=== PATIENT | female | born 1990 | race Caucasian/White ===

== ENCOUNTER 2020-11-11 07:27 | Outpatient (CLI) | payer OTHER, MEDICAID, SELFPAY ==
--- NOTE | ~2020-11-11 | US_ITS ---
EXAMINATION: US abdomen limited DATE: 11/11/2020 08:02 INDICATION: Right upper quadrant abdominal pain. Proteinuria affecting in second trimester. TECHNIQUE: Multiple grayscale and Doppler ultrasound images of the abdomen were obtained. COMPARISON: None FINDINGS: The visualized portions of the head, body, and tail of the pancreas are normal. The liver i s normal without focal lesion. There is normal flow in main portal vein. The gallbladder is absent. T he common duct is normal and measures 2 mm. IMPRESSION: 1. Normal right upper quadrant ultrasound status post cholecystectomy. Reviewed, dictated and finalized at location A.
== END 2020-11-11 07:28 | disposition home or self-care (01) ==
LOC: ANHIMG 07:32
PROVIDERS: Visit Provider Obstetrics & Gynecology Obstetrics
DX: K83.1 Obstruction of bile duct (principal); R80.9 Proteinuria, unspecified; Z90.49 Acquired absence of other specified parts of digestive tract
CPT/HCPCS: 76705

== ENCOUNTER 2022-03-24 19:17 | Emergency (ER) | payer MEDICAID, SELFPAY ==
--- NOTE | ~2022-03-24 | XR_ITS ---
EXAM: XR finger 1st LT min 2V DATE: 03/24/2022 19:38 HISTORY: smashed lt thumb in cart.pain mid to distal lt 1st . COMPARISON: None available. FINDINGS: Normal mineralization. No fracture or dislocation. No lytic or blastic lesion. Joint space s are maintained. No erosion or periosteal change. Soft tissues within normal limits. IMPRESSION: No acute osseous finding in the left thumb. Reviewed, dictated and finalized at location K.
[2022-03-24 19:27] VITALS: BP 127/80; PULSE 71; RESP 16; TEMP 36.3; O2SAT 100
--- NOTE | 2022-03-24 19:33 | ED.UPPEXIN ---
HPI - Extremity Injury (Upper) General Chief Complaint: Extremity Injury, Upper Stated Complaint: Thumb Injury Time Seen by Provider: 03/24/22 19:35 Source: patient and RN notes reviewed Mode of arrival: ambulatory Limitations: no limitations History of Present Illness HPI narrative: 31-year-old female presents concern for injury to the first digit of left hand. Reports earlier this morning she smashed the finger in a cart. She reports pain, swelling, discoloration under her fingernail. Reports she has been alternating Tylenol and ibuprofen. MD complaint: injury to: left and finger Related Data Home Medications Medication Instructions Recorded Confirmed alprazolam 0.5 mg tablet 0.5 mg PO DAILY 03/24/22 03/24/22 bupropion HCl 150 mg 24 hr tablet, 150 mg PO DAILY 03/24/22 03/24/22 extended release buspirone 7.5 mg tablet 7.5 mg PO DAILY 03/24/22 03/24/22 dextroamphetamine-amphetamine ER 20 mg PO DAILY 03/24/22 03/24/22 20 mg 24hr capsule,extend release Allergies Allergy/AdvReac Type Severity Reaction Status Date / Time fluoxetine [From Prozac] AdvReac Other Verified 03/24/22 19:37 Review of Systems Review of Systems: CONSTITUTIONAL: Denies malaise, chills, sweats, or fever. SKIN: Denies rash or itching, open skin, laceration, abrasion, redness, warmth MUSCULOSKELETAL: Reports pain, swelling, discoloration in the nailbed of the first digit of the left hand NEUROLOGIC: Denies numbness, weakness All systems reviewed & are unremarkable except as noted in HPI and below PMFSH Comments At time of signature, agree with nursing past medical, surgical, social and family history. There is no relevant family history pertinent to the presenting complaint Exam Narrative: GENERAL: Well-appearing, well-nourished, and in no acute distress. HEAD: Normocephalic EYES: PERRLA, conjunctivae clear NECK: Supple. CHEST: Speaks in full sentences. No respiratory distress. HEART: Regular rate and rhythm. Normal and equal peripheral pulses. EXTREMITIES: First digit of left hand has normal strength and sensation. 5/5 strength with digit flexion, extension. Range of motion normal. No clubbing, cyanosis. Mild distal digit edema noted. Tenderness palpation. Skin intact. Normal digital cascade with flexion of fingers, median, ulnar and radial nerve intact. Normal sensation of each side of finger. Can perform 'okay' sign, 'cross over finger test of index and middle fingers' and 'thumbs up' sign. No scissoring. Normal thumb opposition. Good capillary refill and radial pulse. Distal capillary refill less than 3 seconds. Patient is right/left hand dominant SKIN: Warn, dry, intact, pink. No rash. Subungual hematoma noted the first digit of left hand NEURO: Alert and oriented x3. PSYCH: Normal mood and affect Course Course Emergency Course: Patient is aware of diagnosis, understands and agrees to treatment plan. Anticipatory guidance given. Patient agrees to follow-up as directed and is aware of reasons to seek care at the emergency department. Portions of this record may have been created with voice recognition software Level of Care: Express Care Visit Vital Signs Vital signs: Vital Signs Temperature 97.3 F L 03/24/22 19:27 Pulse Rate 71 03/24/22 19:27 Respiratory Rate 16 03/24/22 19:27 Blood Pressure 127/80 03/24/22 19:27 Pulse Oximetry 100 03/24/22 19:27 Oxygen Delivery Room Air 03/24/22 19:27 Temperature 97.3 F L 03/24/22 19:27 Pulse Rate 71 03/24/22 19:27 Respiratory Rate 16 03/24/22 19:27 Blood Pressure 127/80 03/24/22 19:27 Pulse Oximetry 100 03/24/22 19:27 Oxygen Delivery Room Air 03/24/22 19:27 Reviewed. Procedures Nail Trephination Nail Trephination #1: Nail Trephination Date: 03/24/22 Nail Trephination Time: 19:40 Time out: Yes Location (finger): left and thumb Sterile prep: betadine Method of drainage: nail cautery Procedure succ
== END 2022-03-24 19:55 | disposition home or self-care (01) ==
PROVIDERS: Emergency Provider Nurse Practitioner; PCP Family Medicine
DX: S60.112A Contusion of left thumb with damage to nail, initial encounter (principal); X58.XXXA Exposure to other specified factors, initial encounter; F41.9 Anxiety disorder, unspecified; F32.A Depression, unspecified
CPT/HCPCS: 11740; 73140; 99213; G0463

== ENCOUNTER 2022-04-11 10:48 | Emergency (ER) | payer OTHER, SELFPAY ==
--- NOTE | ~2022-04-11 | XR_ITS ---
EXAMINATION: XR chest 2V DATE: 04/11/2022 11:27 INDICATION: Cough TECHNIQUE: PA and lateral views of the chest are obtained. COMPARISON: None available FINDINGS: The lungs are free of acute opacities. No pleural effusion or pneumothorax. The cardiomedia stinal silhouette is normal. Surgical clips in the right upper quadrant are likely from prior cholecy stectomy. IMPRESSION: 1. No acute cardiopulmonary abnormality. Reviewed, dictated and finalized at location A.
[2022-04-11 10:54] VITALS: BP 125/61; PULSE 92; RESP 14; TEMP 36.9; O2SAT 99
[2022-04-11 11:10] VITALS: BP 125/61; PULSE 92; RESP 14; TEMP 36.9; O2SAT 99
--- NOTE | 2022-04-11 11:22 | ED.GENADULT ---
HPI - General Adult General Chief complaint: Upper Respiratory Infection Stated complaint: Chest Congestion/Cough Source: patient Mode of arrival: ambulatory Limitations: no limitations History of Present Illness HPI narrative: Patient presents for evaluation of cough for the last 3 days. She states the cough is productive of green/yellow/clear mucus. She has associated shortness of breath and chest heaviness. She states she was seen at an urgent care with [facility] about nine days ago for sore throat. Rapid strep negative at that time, as were her COVID and flu tests. She states she was contacted 7 days ago after the throat culture was positive for strep. She states she was prescribed an unknown antibiotic and took it for several days. She felt like it was not helping her so she stopped taking it a few days ago. Her sore throat persisted. She contacted the urgent care she was initially seen at. She states that they called her in an antibiotic but she has not picked it up yet. She reports hot flashes and chills. No recent sick contacts to her knowledge. She had COVID back in July 2021. She has received COVID vaccination. She has tried TheraFlu and Mucinex without improvement in her symptoms thereafter. No additional complaints or concerns Related Data Home Medications Medication Instructions Recorded Confirmed alprazolam 0.5 mg tablet 0.5 mg PO DAILY 03/24/22 04/11/22 bupropion HCl 150 mg 24 hr tablet, 150 mg PO DAILY 03/24/22 04/11/22 extended release buspirone 7.5 mg tablet 7.5 mg PO DAILY 03/24/22 04/11/22 dextroamphetamine-amphetamine ER 20 mg PO DAILY 03/24/22 04/11/22 20 mg 24hr capsule,extend release Allergies Allergy/AdvReac Type Severity Reaction Status Date / Time fluoxetine [From Prozac] AdvReac Other Verified 04/11/22 10:56 Review of Systems Review of Systems: CONSTITUTIONAL: Reports hot flashes and chills. EYES: Denies visual changes, redness, or discharge. ENT: Reports sore throat. Denies rhinorrhea, congestion, or otalgia. CARDIOVASCULAR: Denies chest pain, palpitations, or edema. RESPIRATORY: Reports productive cough of clear/yellow/green mucus and shortness of breath. GASTROINTESTINAL: Denies abdominal pain, nausea, vomiting, or diarrhea. GENITOURINARY: Denies dysuria or hematuria. SKIN: Denies rash or itching. MUSCULOSKELETAL: Denies back pain, joint pain, or myalgia. NEUROLOGIC: Denies headache, numbness, dizziness, or weakness. PSYCHIATRIC: Denies anxiety or depression. [facility] Past Medical History Medical History (Updated 04/11/22 @ 12:18 by TIFFANIE Chen, ) ADD (attention deficit disorder) Anxiety Depression Surgical History Surgical History History of cholecystectomy Family History Family History Mother Family history non-contributory Social History Social History Living arrangements: with family Gender identity (if verbalized by the patient): Female Sexual Orientation (if Verbalized by the Patient): Straight or Heterosexual Spiritual care concerns: No Exam Narrative: GENERAL: Well-appearing, well-nourished, and in no acute distress. HEAD: Normocephalic, atraumatic. EYES: PERRLA and EOMI. ENT: Nares clear, no rhinorrhea or epistaxis. Mucous membranes moist. Oropharynx without tonsillar hypertrophy exudate or other lesions. Bilateral TMs pearly hatfield nonbulging NECK: Supple. No adenopathy or masses. No carotid bruits or JVD CHEST: Clear to auscultation. No respiratory distress. No wheezes rales or rhonchi HEART: Regular rate and rhythm. No murmur heard. Normal peripheral pulses. ABDOMEN: Soft, nontender, nondistended, normal active bowel sounds. EXTREMITIES: Normal range of motion. No edema. SKIN: Warm, dry, no rash. NEURO: No focal deficits. Alert and oriented x3. PS
== END 2022-04-11 12:21 | disposition home or self-care (01) ==
PROVIDERS: Emergency Provider Nurse Practitioner; PCP Family Medicine
DX: R05.9 Cough, unspecified (principal); Z86.19 Personal history of other infectious and parasitic diseases; Z20.822 Contact with and (suspected) exposure to COVID-19; F98.8 Other specified behavioral and emotional disorders with onset usually occurring in childhood and adolescence; F41.9 Anxiety disorder, unspecified; F32.A Depression, unspecified
CPT/HCPCS: 71046; 87426; 87804; 99213; C9803; G0463

== ENCOUNTER 2022-07-30 16:19 | Emergency (ER) | payer OTHER, SELFPAY ==
--- NOTE | 2022-07-30 16:22 | ED.DIZZY ---
HPI - Dizziness General Chief Complaint: Dizziness Stated Complaint: Dizziness Time Seen by Provider: 07/30/22 16:22 Source: patient and RN notes reviewed History of Present Illness HPI Narrative: patient is a 31-year-old female who presents to urgent care with complaints of dizziness, fever, head congestion for the last 2 days. Patient is also had a lot of fatigue. Patient tested herself at home and it was negative for COVID. Patient has been taking Tylenol for her fevers. No other acute complaints. No acute distress noted. Patient aware of plan of care. Some parts of this dictation were generated by voice recognition software and may contain typographical and/or grammatical inaccuracies. Related Data Home Medications Medication Instructions Recorded Confirmed alprazolam 0.5 mg tablet 0.5 mg PO DAILY 03/24/22 07/30/22 bupropion HCl 150 mg 24 hr tablet, 150 mg PO DAILY 03/24/22 07/30/22 extended release buspirone 7.5 mg tablet 7.5 mg PO DAILY 03/24/22 07/30/22 dextroamphetamine-amphetamine ER 20 mg PO DAILY 03/24/22 07/30/22 20 mg 24hr capsule,extend release Allergies Allergy/AdvReac Type Severity Reaction Status Date / Time fluoxetine [From Prozac] AdvReac Other Verified 07/30/22 16:41 Review of Systems Review of Systems: CONSTITUTIONAL: reports of fever, chills fatigue EYES: Denies visual changes, redness, or discharge. ENT: reports of congestion CARDIOVASCULAR: Denies chest pain, palpitations, or edema. RESPIRATORY: Denies cough or dyspnea. GASTROINTESTINAL: Denies abdominal pain, nausea, vomiting, or diarrhea. GENITOURINARY: Denies dysuria or hematuria. SKIN: Denies rash or itching. MUSCULOSKELETAL: Denies back pain, joint pain. Reports body aches NEUROLOGIC: Denies headache, numbness, or weakness. All other systems reviewed are negative, except as documented in HPI. [facility] Past Medical History Medical History (Updated 07/30/22 @ 16:53 by TIFFANIE Bautista) ADD (attention deficit disorder) Anxiety Depression Surgical History Surgical History History of cholecystectomy Family History Family History Mother Family history non-contributory Social History Social History Gender identity (if verbalized by the patient): Female Sexual Orientation (if Verbalized by the Patient): Straight or Heterosexual Spiritual care concerns: No Comments At the time of my signature, I reviewed and agree with the nursing past medical, surgical, social, and family history. There is no relevant family history pertinent to the patient complaint. Exam Narrative: GENERAL: This is a well-nourished, well-developed patient, in no apparent distress. HEAD: normocephalic, atraumatic. EYES: PERRL. Sclera clear/white. Vision is grossly intact. EARS: External ears normal, auditory canals clear and without drainage, TMs normal without perforation. Hearing grossly intact. NOSE: External nose normal with no obvious nasal discharge, nares without redness, clear rhinorrhea. THROAT: Mucous membranes moist, posterior pharynx clear. moderate postnasal drainage NECK: Neck supple, non-tender without lymphadenopathy CARDIOVASCULAR: Regular rate and rhythm without murmurs, gallops, or rubs. RESPIRATORY: Clear to auscultation. Breath sounds equal bilaterally. No wheezes, rales, or rhonchi. SKIN: warm, intact with no suspicious lesions or rash, good texture and turgor. NEURO: awake, alert, and oriented to person, place and time. There were no obvious focal neurologic abnormalities. EXTREMITIES: No clubbing, cyanosis, or edema. Course Course Level of Care: Express Care Visit Vital Signs Vital signs: Vital Signs Temperature 97.6 F 07/30/22 16:32 Pulse Rate 92 07/30/22 16:32 Respiratory Rate 12 07/30/22 16:32 Blood Pressure
[2022-07-30 16:32] VITALS: BP 99/62; PULSE 92; RESP 12; TEMP 36.4; O2SAT 100
== END 2022-07-30 16:55 | disposition home or self-care (01) ==
PROVIDERS: Emergency Provider Nurse Practitioner Family; PCP Family Medicine
DX: B34.9 Viral infection, unspecified (principal); F41.8 Other specified anxiety disorders
CPT/HCPCS: 87804; 99213; G0463

== ENCOUNTER 2022-09-08 13:28 | Emergency (ER) | payer OTHER, SELFPAY ==
--- NOTE | 2022-09-08 13:32 | ED.URI ---
HPI - URI/Sore Throat General Chief Complaint: Ear Stated Complaint: ear pressure / kink left shoulder Time Seen by Provider: 09/08/22 14:15 Source: patient and RN notes reviewed Mode of arrival: ambulatory Limitations: no limitations History of Present Illness HPI Narrative: 31-year-old female presents with multiple complaints. Reports 2 week history of bilateral ear pain and pressure. Reports she has not had any other cold symptoms. Denies drainage from the ears. She reports while driving here to have her ears looked that she began having pain between her right neck and shoulder. She denies injury or trauma. She reports it hurts to turn her neck to left. She denies any history of neck injury. MD elicited complaint: other (Your pain, neck pain) Related Data Home Medications Medication Instructions Recorded Confirmed dextroamphetamine-amphetamine ER 20 mg PO DAILY 03/24/22 09/08/22 20 mg 24hr capsule,extend release alprazolam 1 mg tablet 1 mg PO DIRECTED 09/08/22 09/08/22 citalopram 20 mg tablet 20 mg PO DIRECTED 09/08/22 09/08/22 propranolol 10 mg tablet 10 mg PO DIRECTED 09/08/22 09/08/22 Allergies Allergy/AdvReac Type Severity Reaction Status Date / Time fluoxetine [From Prozac] AdvReac Other Verified 09/08/22 13:46 Review of Systems Review of Systems: CONSTITUTIONAL: Denies malaise, chills, sweats, or fever. EYES: Denies visual changes, redness, or discharge. ENT: Reports rhinorrhea, congestion, sinus pain, and sore throat. Reports bilateral ear pain and pressure CARDIOVASCULAR: Denies chest pain, palpitations, or edema. RESPIRATORY: Denies cough. Denies dyspnea. GASTROINTESTINAL: Denies abdominal pain, nausea, vomiting, diarrhea SKIN: Denies rash or itching. MUSCULOSKELETAL: Reports pain between the right-sided neck and shoulder NEUROLOGIC: Denies headache. All systems reviewed & are unremarkable except as noted in HPI and below PMFSH Past Medical History Medical History (Updated 09/08/22 @ 14:24 by Nilsa Wakefield NP) ADD (attention deficit disorder) Anxiety Depression Surgical History Surgical History History of cholecystectomy Family History Family History Mother Family history non-contributory Social History Social History Gender identity (if verbalized by the patient): Female Sexual Orientation (if Verbalized by the Patient): Straight or Heterosexual Spiritual care concerns: No Comments At time of signature, agree with nursing past medical, surgical, social and family history. There is no relevant family history pertinent to the presenting complaint Exam Narrative: GENERAL: Well-appearing, well-nourished, and in no acute distress. HEAD: Normocephalic EYES: PERRLA, conjunctivae clear ENT: Nares clear, no discharge. Mucous membranes moist. TM pearly hatfield with dull light reflex bilaterally; no tragal tenderness. Oropharynx not erythematous without lesions. Tonsils not enlarged and without exudate, no drooling, no hoarseness, no trismus, uvula midline. NECK: Supple. No lymphadenopathy CHEST: No respiratory distress, speaks in full sentences. HEART: Regular rate and rhythm. No murmur heard. SKIN: Warm, dry, no rash. MUSC: Grossly normal strength and sensation, range of motion bilateral upper extremities, neck. No cervical tenderness NEURO: Alert and oriented x3. PSYCH: Normal mood and affect Course Course Emergency Course: Patient is aware of diagnosis, understands and agrees to treatment plan. Anticipatory guidance given. Patient agrees to follow-up as directed and is aware of reasons to seek care at the emergency department. Portions of this record may have been created with voice recognition software Level of Care: Express Care Visit Vital Signs Vital signs: Reviewed. MDM - UR
[2022-09-08 13:38] VITALS: BP 119/68; PULSE 99; RESP 20; TEMP 37.1; O2SAT 100
[2022-09-08 13:49] VITALS: BP 119/68; PULSE 99; RESP 20; TEMP 37.1; O2SAT 100
== END 2022-09-08 14:28 | disposition home or self-care (01) ==
PROVIDERS: Emergency Provider Nurse Practitioner; PCP Family Medicine
DX: H73.893 Other specified disorders of tympanic membrane, bilateral (principal); S16.1XXA Strain of muscle, fascia and tendon at neck level, initial encounter; X58.XXXA Exposure to other specified factors, initial encounter; F98.8 Other specified behavioral and emotional disorders with onset usually occurring in childhood and adolescence; F41.9 Anxiety disorder, unspecified; F32.A Depression, unspecified
CPT/HCPCS: 99213; G0463

== ENCOUNTER 2023-05-31 15:53 | Emergency (ER) | payer OTHER, SELFPAY ==
[2023-05-31 16:09] VITALS: BP 115/81; PULSE 77; RESP 18; TEMP 36.7; O2SAT 98
--- NOTE | 2023-05-31 16:22 | ED.SKABFB ---
HPI - Skin/Abscess/Foreign Bdy General Chief complaint: Skin/Abscess/Foreign Body Stated complaint: open wound/right back shoulder History of Present Illness HPI narrative: PATIENT PRESENTS WITH AN INSECT BITE TO HER RIGHT SHOULDER. PATIENT STATES SHE IS NOT SURE WHEN IT OCCURRED BUT SHE NOTICED IT YESTERDAY. PATIENT STATES IT ITCHES AND VORA AT THE SAME TIME. NO OTHER AREAS NOTED PATIENT IS NOT A APPLIED ANYTHING TO THE AREA AT THIS TIME. Related Data Home Medications Medication Instructions Recorded Confirmed alprazolam 1 mg tablet 1 mg PO DIRECTED 09/08/22 05/31/23 phentermine 30 mg capsule 30 mg PO DIRECTED 05/31/23 05/31/23 Allergies Allergy/AdvReac Type Severity Reaction Status Date / Time fluoxetine [From Prozac] AdvReac Other Verified 05/31/23 16:20 Review of Systems Review of Systems: CONSTITUTIONAL: DENIES FEVER, CHILLS, OR SWEATS. EYES: DENIES VISUAL CHANGES, REDNESS, OR DISCHARGE. ENT: DENIES RHINORRHEA, CONGESTION, SORE THROAT, OR OTALGIA. CARDIOVASCULAR: DENIES CHEST PAIN, PALPITATIONS, OR EDEMA. RESPIRATORY: DENIES COUGH OR DYSPNEA. GASTROINTESTINAL: DENIES ABDOMINAL PAIN, NAUSEA, VOMITING, OR DIARRHEA. GENITOURINARY: DENIES DYSURIA OR HEMATURIA. SKIN: DENIES RASH OR ITCHING. MUSCULOSKELETAL: DENIES BACK PAIN, JOINT PAIN, OR MYALGIA. NEUROLOGIC: DENIES HEADACHE, NUMBNESS, OR WEAKNESS. PSYCHIATRIC: DENIES ANXIETY OR DEPRESSION. [facility] Past Medical History Medical History (Updated 05/31/23 @ 16:25 by TIFFANIE Mei) ADD (attention deficit disorder) Anxiety Depression Surgical History Surgical History History of cholecystectomy Family History Family History Mother Family history non-contributory Social History Social History Living arrangements: with family Gender identity (if verbalized by the patient): Female Sexual Orientation (if Verbalized by the Patient): Straight or Heterosexual Spiritual care concerns: No Comments AT TIME OF SIGNATURE, AGREE WITH NURSING PAST MEDICAL, SURGICAL, SOCIAL AND FAMILY HISTORY. THERE IS NO RELEVANT FAMILY HISTORY PERTINENT TO THE PRESENTING COMPLAINT Exam Narrative: GENERAL: WELL-APPEARING, WELL-NOURISHED, AND IN NO ACUTE DISTRESS. HEAD: NORMOCEPHALIC, ATRAUMATIC. EYES: PERRLA AND EOMI. ENT: NARES CLEAR, NO RHINORRHEA OR EPISTAXIS. MUCOUS MEMBRANES MOIST. NECK: SUPPLE. CHEST: CLEAR TO AUSCULTATION. NO RESPIRATORY DISTRESS. HEART: REGULAR RATE AND RHYTHM. NO MURMUR HEARD. NORMAL PERIPHERAL PULSES. ABDOMEN: SOFT, NONTENDER, NONDISTENDED, NORMAL ACTIVE BOWEL SOUNDS. EXTREMITIES: NORMAL RANGE OF MOTION. NO EDEMA. SKIN: WARM, DRY, NO RASH. INSECT BITE TO RIGHT SHOULDER 1 CM AREA OF REDNESS AND ERYTHEMA NO DRAINAGE NO CONCERN FOR CELLULITIS NEURO: NO FOCAL DEFICITS. ALERT AND ORIENTED X3. RACHEL COMA SCALE EYE OPENING: SPONTANEOUS 4 RACHEL COMA SCALE MOTOR: OBEYS COMMANDS 6 RACHEL COMA SCALE VERBAL: ORIENTED 5 RACHEL COMA SCALE TOTAL 15 Course Course Level of Care: Express Care Visit Discharge Plan Discharge Clinical Impression: Insect bites Patient Disposition: Home, Self-Care Condition: Stable Instructions: Insect Bite or Sting (ED) Additional Instructions: WASH AREA WITH WARM SOAPY WATER 2 TIMES A DAY AND APPLY ANTIBIOTIC OINTMENT AND THEN APPLY THIN LAYER OF STEROID OINTMENT PRESCRIBED. FOLLOW-UP WITH PRIMARY CARE PROVIDER IN 5-7 DAYS FOR RE-EVALUATION NEEDED IF ANY NEW OR WORSENING SYMPTOMS PLEASE GO TO ER IMMEDIATELY FURTHER EVALUATION TREATMENT Prescriptions: New bacitracin 500 unit/gram ointment 1 applic TOPICAL TID Qty: 14 0RF triamcinolone acetonide 0.1 % ointment 1 applic topical TID 7 Days Qty: 30 0RF No Action phentermine 30 mg capsule 30 mg PO DIRECTED alprazolam 1 mg
== END 2023-05-31 16:40 | disposition home or self-care (01) ==
PROVIDERS: Emergency Provider Nurse Practitioner Family
DX: S40.261A Insect bite (nonvenomous) of right shoulder, initial encounter (principal); Z79.899 Other long term (current) drug therapy; W57.XXXA Bitten or stung by nonvenomous insect and other nonvenomous arthropods, initial encounter
CPT/HCPCS: 99213; G0463